=== PATIENT | female | born 1970 | race American Indian/Alaskan Native ===

== ENCOUNTER 2020-01-09 09:45 | Outpatient (CLI) | payer OTHER ==
--- NOTE | 2020-01-09 10:40 | XRay Report ---
LUMBAR SPINE 3 VIEWS INDICATION / CLINICAL INFORMATION: FIBROMYALGIA DEGEN DISC DISEASE OSTEOARTHRITIS. COMPARISON: None available. FINDINGS: VERTEBRAE: No acute fracture. No significant malalignment. DISC SPACES / FACET JOINTS:Mild disc space height loss at L5-S1. PARASPINAL SOFT TISSUES:No significant abnormality. ADDITIONAL FINDINGS: None. Signer Name: Cezar Amado MD Signed: 01/09/2020 10:36 AM Workstation Name: [id number]
== END 2020-01-09 09:46 | disposition home or self-care (01) ==
LOC: XRAY 09:45
PROVIDERS: ATTEND Internal Medicine
DX: R29.890 Loss of height (principal); F32.9 Major depressive disorder, single episode, unspecified; F41.9 Anxiety disorder, unspecified; M79.7 Fibromyalgia
CPT/HCPCS: 72100